=== PATIENT | female | born 1970 | race Two or more races ===

== ENCOUNTER 2017-09-14 16:18 | Emergency (ER) | payer OTHER ==
[~2017-09-14] VITALS: Ht 157.5 cm; Wt 103.0 kg
[2017-09-14 16:34] VITALS: BP 148/96
[2017-09-14] MEDS ORDERED: methylPREDNISolone SOD SUCC 125 MG/2 ML VL IM ONE (16:45)
[2017-09-14] MEDS ORDERED: cefTRIAXone SOD 1,000 MG VL IM ONE (16:45)
== END 2017-09-14 17:14 | disposition home or self-care (01) ==
LOC: ER 16:25
DX: J03.90 Acute tonsillitis, unspecified (principal); G89.29 Other chronic pain; M54.5 Low back pain; Z88.1 Allergy status to other antibiotic agents; Z88.2 Allergy status to sulfonamides
CPT/HCPCS: 96372; 99284; J0696; J2930

== ENCOUNTER 2017-10-31 21:58 | Emergency (ER) | payer MEDICAID, OTHER ==
[~2017-10-31] VITALS: Ht 157.5 cm; Wt 90.7 kg
[2017-10-31 22:17] VITALS: BP 112/84
[2017-10-31] MEDS ORDERED: KETOROLAC TROMETH 60MG/2ML VIAL IM ONE (23:30)
== END 2017-11-01 00:45 | disposition home or self-care (01) ==
LOC: ER 21:58
DX: R22.9 Localized swelling, mass and lump, unspecified (principal); Z88.2 Allergy status to sulfonamides
CPT/HCPCS: 74176; 99284; J1885